=== PATIENT | female | born 1960 ===

== ENCOUNTER 2024-09-20 06:20 | Day surgery (SDC) | payer OTHER ==
[2024-09-20] MEDS ORDERED: MIDAZOLAM HCL/PF 5 MG/ML VIAL IV ONE (12:45)
[2024-09-20] MEDS ORDERED: fentaNYL CITRATE 50 MCG/ML AMPUL IV ONE (12:45)
[2024-09-20] MEDS ORDERED: DIPHENHYDRAMINE HCL 50 MG/ML VIAL 1ML IV ONE (13:00)
== END 2024-09-20 14:00 | disposition home or self-care (01) ==
LOC: AMB-ENDOS 06:20
PROVIDERS: ATTEND Surgery
DX: D12.5 Benign neoplasm of sigmoid colon (principal); K63.5 Polyp of colon; K57.30 Diverticulosis of large intestine without perforation or abscess without bleeding